=== PATIENT | female | born 1945 | race Caucasian/White ===

== ENCOUNTER → 2016-11-13 | Outpatient (CLI) | payer MEDICARE, OTHER | LOC: MC.RAD 10:40 | DX: Z12.31 Encounter for screening mammogram for malignant neoplasm of breast (principal); N64.89 Other specified disorders of breast ==

== ENCOUNTER → 2018-05-21 | Outpatient (CLI) | payer MEDICARE, OTHER | LOC: COL.RAD 20:02 | DX: R06.09 Other forms of dyspnea (principal); R53.83 Other fatigue; Z96.659 Presence of unspecified artificial knee joint | CPT/HCPCS: Q9967 ==

== ENCOUNTER → 2021-12-09 | Outpatient (CLI) | payer MEDICARE | LOC: COL.RAD 12:41 | DX: I12.9 Hypertensive chronic kidney disease with stage 1 through stage 4 chronic kidney disease, or unspecified chronic kidney disease (principal); N18.30 Chronic kidney disease, stage 3 unspecified; Q63.8 Other specified congenital malformations of kidney | CPT/HCPCS: Q9967 ==

== ENCOUNTER → 2023-06-03 | Outpatient (CLI) | payer MEDICARE ==
[2023-06-03 18:12] LABS: COLLECTION METHOD CLEAN CATCH; URINE APPEARANCE Hazy (CLEAR/HAZY); URINE BLOOD Negative (NEGATIVE); URINE COLOR Yellow (YELLOW); URINE GLUCOSE Negative (NEGATIVE); URINE KETONE Negative (NEGATIVE); URINE NITRATE Negative (NEGATIVE); URINE PROTEIN(semi-quant) Negative (NEGATIVE)
[2023-06-03 18:13] LABS: SQUAMOUS EPITHELIAL 0-2 /hpf (0-10); URINE BACTERIA Moderate /hpf (NONE SEEN); URINE RBC None Seen /hpf (0-2)
== END ==
LOC: COL.LAB 16:50
PROVIDERS: Registered Nurse
DX: R30.0 Dysuria (principal)

== ENCOUNTER → 2023-06-05 | Outpatient (CLI) | payer MEDICARE ==
[2023-06-05 11:08] LABS: CALCIUM 9.5 mg/dL (8.4-10.2); CREATININE, serum 0.92 mg/dL (0.57-1.11); POTASSIUM 4.2 mmol/L (3.5-4.5)
== END ==
LOC: COL.LAB 10:03
PROVIDERS: Registered Nurse
DX: Q63.8 Other specified congenital malformations of kidney (principal); N18.31 Chronic kidney disease, stage 3a